=== PATIENT | female | born 1995 | race Caucasian/White ===

== ENCOUNTER 2020-08-15 23:35 | Emergency (ER) | payer OTHER ==
[~2020-08-15] VITALS: Ht 167.6 cm; Wt 65.8 kg
[2020-08-15 23:40] VITALS: BP 126/73
--- NOTE | 2020-08-15 23:59 | NUR ---
DONALD COLLECTED AND SENT TO THE LAB.
--- NOTE | 2020-08-16 01:08 | NUR ---
Patient discharged to home in stable condition. Written and verbal after care instructions given. Patient verbalizes understanding of instruction.
--- NOTE | 2020-08-16 01:08 | NUR ---
COVID RESULTS PROVIDED TO THE PATIENT.
== END 2020-08-16 01:08 | disposition home or self-care (01) ==
LOC: ER 23:40
DX: R07.89 Other chest pain (principal); Z20.828 Contact with and (suspected) exposure to other viral communicable diseases; F32.9 Major depressive disorder, single episode, unspecified
CPT/HCPCS: 87426; 99283; C9803